=== PATIENT | male | born 1985 | race Hispanic/Latino ===

== ENCOUNTER 2018-07-13 14:18 | Outpatient (CLI) | payer OTHER ==
--- NOTE | 2018-07-13 15:21 | ULT ---
TESTICULAR ULTRASOUND WITH DOPPLER: HISTORY: Testicular pain. COMPARISON: None. TECHNIQUE: Real-time, santos-scale, color Doppler and spectral analysis of the testicle is performed. FINDINGS: The right testicle measures 4.6 x 3.3 x 2.3 cm. The left testicle measures 4.7 x 2.9 x 2.2 cm. No t esticular mass. No hydrocele. Vascularity is normal. Epididymides are normal. IMPRESSION: Normal examination. POS: [facility]
== END 2018-07-13 14:19 | disposition home or self-care (01) ==
LOC: BICULT 14:18
PROVIDERS: ATTEND Family Medicine
DX: N50.82 Scrotal pain (principal)
CPT/HCPCS: 76870; 93976

== ENCOUNTER 2019-01-25 19:55 | Observation (INO) | payer OTHER ==
[2019-01-25] MEDS ORDERED: Famotidine/PF 20 mg/2ml Vial ONE (20:02)
[2019-01-25] MEDS ORDERED: EPINEPHrine 1 MG/10 ML Abboject SYRINGE ONE (20:03)
[2019-01-25] MEDS ORDERED: methylPREDNISolone Sod Succ/PF 125 MG/2 ML VIAL ONE ×2 (20:03→20:41)
[2019-01-25] MEDS ORDERED: Hydrocortisone Sod Succ/PF 100 mg/2 ml Vial ONE (20:03)
[2019-01-25] MEDS ORDERED: EPINEPHrine 1 MG/ML AMP ONE (20:04)
[2019-01-25] MEDS ORDERED: Ondansetron PF 4 MG/2 ML Vial ONE ×2 (20:10)
[2019-01-25 20:47] LABS: Mean Corpuscular Hemoglobin 31.8 pg (27.0-31.0); Mean Corpuscular Volume 93.4 fL (78.0-98.0); Mean Platelet Volume 7.6 fL (7.4-10.4); Platelet Count 321 thou/uL (130-400); RBC Distribution Width 12.1 % (11.5-14.5); Red Blood Cell (RBC) Count 6.28 mill/uL (4.70-6.10); White Blood Cell (WBC) Count 6.4 thou/uL (4.8-10.8)
[2019-01-25] MEDS ORDERED: Albuterol Sulfate 2.5 mg/0.5 ml Neb ONE (20:51)
[2019-01-25] MEDS ORDERED: Albuterol Sulfate 2.5 mg/3 ml Neb ONE (20:51)
[2019-01-25 21:07] LABS: ALT (SGPT) 13 U/L (8-55); AST (SGOT) 15 U/L (5-34); Albumin 4.7 g/dL (3.5-5.0); Alkaline Phosphatase 83 U/L (40-150); Anion Gap 15 mmol/L (10-20); BUN (Urea Nitrogen) 21 mg/dL (8.9-20.6); Bilirubin, Total 0.3 mg/dL (0.2-1.2); Calc. Creatinine Clearance 0 mL/min (70-130); Carbon Dioxide 25 mmol/L (22-29); Chloride 105 mmol/L (98-107); Eosinophils 1 % (0-10); Estimated GFR-MDRD 73; Globulin 3.2 g/dL (2.4-3.5); Glucose 109 mg/dL (70-105); Lymphocytes 67 % (21-51); MDiff Complete? YES; Monocytes 2 % (0-10); Neutrophil 18 % (42-75); Potassium 3.7 mmol/L (3.5-5.1); Protein, Total 7.9 g/dL (6.0-8.3); Reactive Lymphocytes 12 % (0-10); Sodium 141 mmol/L (136-145)
[2019-01-25] MEDS ORDERED: Bacteriostatic Water 30 ML VIAL FS PRN (21:28)
[2019-01-25] MEDS ORDERED: Dextrose 5 % And 0.9 % NaCl 1,000 ML IV SCH (21:30)
[2019-01-25] MEDS ORDERED: Loratadine 10 MG TAB PO SCH (21:30)
--- NOTE | 2019-01-25 21:30 | RAD ---
EXAM: Single view of the chest HISTORY: Dyspnea COMPARISON: None FINDINGS: Single view of the chest shows a normal sized cardiomediastinal silhouette. There is no cassie dence of consolidation, mass, or pleural effusion. The bones are unremarkable. IMPRESSION: No evidence of acute cardiopulmonary disease
--- NOTE | 2019-01-25 21:36 | PDOC.EVN ---
Event Note - Event Note Event Note: [id number] [facility]
[2019-01-25] MEDS ORDERED: methylPREDNISolone Sod Succ/PF 125 MG/2 ML VIAL IVP SCH (23:59)
[2019-01-26 01:24] VITALS: BMI 22.4
--- NOTE | 2019-01-26 02:39 | HP ---
CHIEF COMPLAINT: Anaphylactic reaction. HISTORY OF PRESENT ILLNESS: Mr. Gonzalez is a 33-year-old male with past medical history of seasonal allergies, exercise-induced asthma, presented to the emergency room after he had an anaphylactic reaction to amoxicillin. The patient had sinus infection for which he was prescribed amoxicillin, 10-15 minutes later, he became cyanotic. The patient's blood pressure was low with systolic blood pressure in the 50s. The patient was given epinephrine, IV Solu-Medrol. His blood pressure went up to the low 100s. He is feeling better. 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 The testing showed that he is not allergic to penicillin anymore, so the reason for which he took amoxicillin today. Currently, the patient is feeling better. No shortness of breath. No stridor. Blood pressure improved. The patient is going to be admitted to hospital for monitoring and further management. PAST MEDICAL HISTORY: 1. Seasonal allergies. 2. Exercise-induced asthma. ALLERGIES: PENICILLIN, AMOXICILLIN, BENADRYL. FAMILY HISTORY: Reviewed and noncontributory. SOCIAL HISTORY: He used to smoke marijuana, quit. HOME MEDICATIONS: See medication reconciliation form for updated medications. PAST SURGICAL HISTORY: None. REVIEW OF SYSTEMS: Review of 14 systems is negative except what is mentioned in history of present illness. PHYSICAL EXAMINATION: VITAL SIGNS: On presentation, blood pressure was 58/35, currently is 105/50, pulse is 95, respiratory rate is 20, and temperature is 98.6. HEAD AND NECK: Normocephalic, atraumatic. Neck is supple. No stridor. CHEST: Fair bilateral air entry. No wheezing. HEART: S1, S2. Regular. ABDOMEN: Soft, nontender. Bowel sounds present. NEUROLOGIC: Awake, alert, oriented x3. PSYCH: Normal mood. EXTREMITIES: No clubbing, no cyanosis. LABORATORY DATA: WBC is 6.4, hemoglobin 20, platelet is 321. ASSESSMENT AND PLAN: 1. Anaphylactic reaction/shock, improved with epinephrine. 2. Seasonal allergies. 3. Exercise-induced asthma. PLAN: 1. Admit. 2. Close monitoring. 3. Continue with IV steroids and Pepcid, H1 and H2 inhibitors, avoid Benadryl, but the patient can take Claritin and Zyrtec. 4. Bronchodilators. 5. Reconcile home medications. 6. DVT prophylaxis, early ambulation. 7. Expected length of stay is at least one midnight if patient is stable. Job ID: [id number]
[2019-01-26 08:55] VITALS: BP 117/59; TEMP 97.2
[2019-01-26] MEDS ORDERED: methylPREDNISolone Sod Succ/PF 125 MG/2 ML VIAL IVP SCH (09:00)
[2019-01-26] MEDS ORDERED: Famotidine/PF 20 mg/2ml Vial SLOW IVP SCH (09:00)
--- NOTE | 2019-01-27 12:28 | DIS ---
DATE OF ADMISSION: 01/25/2019 DATE OF DISCHARGE: 01/26/2019 DISCHARGE DISPOSITION: Home. PRIMARY DISCHARGE DIAGNOSIS: Anaphylactic reaction to amoxicillin, resolved. SECONDARY DISCHARGE DIAGNOSES: Seasonal allergy, exercise-induced asthma. PROCEDURES DONE DURING HOSPITALIZATION: Chest x-ray done showed no acute cardiopulmonary abnormality. DISCHARGE MEDICATIONS: 1. Prednisone 10 mg three times daily for 2 days, then twice daily for 2 days, then daily for 3 days, and stop. 2. Pepcid 20 mg twice daily for 5 days. The patient takes cetirizine extended release on a daily basis. ALLERGIES: AMOXICILLIN, PENICILLIN, DIPHENHYDRAMINE, AND HYDROCODONE. DISCHARGE PLAN: The patient to follow up with his primary care physician, Dr. Figueroa in 1 week. BRIEF COURSE DURING HOSPITALIZATION: The patient initially came in with complaints of his throat closing up and was cyanotic on arrival. He apparently took amoxicillin for upper respiratory infection. 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 The patient was maintaining airway and was placed under observation. He was given steroids, Pepcid. The patient has allergy to Benadryl apparently. He soon recovered completely and was wanting to go home. He was tolerating oral solid diet. No tongue swelling or oral cavity edema at the time of discharge. He is ambulating and breathing comfortably. He is advised to follow up with Dr. Figueroa, his primary care physician in 1 week. Please note, I have seen and examined the patient on the day of discharge. Job ID: [id number] [facility]
== END 2019-01-26 12:55 | disposition home or self-care (01) ==
LOC: ERS 19:55 → 2SW 21:00
PROVIDERS: ADMIT Internal Medicine; ATTEND Internal Medicine
DX: T88.6XXA Anaphylactic reaction due to adverse effect of correct drug or medicament properly administered, initial encounter (principal); T36.0X5A Adverse effect of penicillins, initial encounter; J45.909 Unspecified asthma, uncomplicated; Z88.0 Allergy status to penicillin; Z88.5 Allergy status to narcotic agent; Z88.8 Allergy status to other drugs, medicaments and biological substances
CPT/HCPCS: 71045; 80053; 85025; 93005; 94640; 96361; 96372; 96374; 96375; 96376; G0378; J0171; J1720; J2405; J2930; J7611; J7620; S0028